=== PATIENT | male | born 1980 | race African-American/Black ===

== ENCOUNTER 2017-01-29 04:04 | Emergency (ER) | payer BC ==
[2017-01-29 04:26] VITALS: BP 117/78; PULSE 88; TEMP 98.1; BMI 24.4
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
== END 2017-01-29 06:45 | disposition home or self-care (01) ==
LOC: JER 04:04
DX: S20.211A Contusion of right front wall of thorax, initial encounter (principal); Y04.0XXA Assault by unarmed brawl or fight, initial encounter
CPT/HCPCS: 71101-TC-RT; 99281-25